=== PATIENT | female | born 1990 | race Caucasian/White ===

== ENCOUNTER 2017-06-22 19:00 | Emergency (ER) | payer SELFPAY ==
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
[2017-06-22 21:03] VITALS: BP 107/58
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
== END 2017-06-22 21:00 | disposition home or self-care (01) ==
LOC: ED 19:00
DX: M79.1 Myalgia (principal); Y32.XXXA Crashing of motor vehicle, undetermined intent, initial encounter; Y93.9 Activity, unspecified; Y99.9 Unspecified external cause status
CPT/HCPCS: 71020; 72125; 73030; 73552; 99283; S1016

== ENCOUNTER 2017-06-28 10:19 | Emergency (ER) | payer SELFPAY ==
--- NOTE | 2017-06-28 10:30 | ED Physician Documentation ---
Nausea/Vomiting/Diarrhea - HISTORIAN Historian: patient - HPI Chief Complaint: Nausea,Vomiting,Diarrhea Onset: hours (36 hours ago) Duration: none Timing: sudden onset Context: denies: out of country travel, bad food Severity: moderate - Associated Symptoms Vomiting: frequent (5-6 times yesterday, 3 times this AM) Diarrhea: mild (3 times no blood) Abdominal Pain: cramping - ROS CONST: chills. denies: recent illness, fever - PAST HX Past History: none Other History: denies: gall stones, colon problems Surgeries/Procedures: other (c section) Immunizations: referred to PCP Allergies/Adverse Reactions: Allergies Allergy/AdvReac Type Severity Reaction Status Date / Time Penicillins Allergy Verified 06/28/17 10:32 Home Medications: Ambulatory Orders Medication Instructions Recorded Ondansetron HCl Rapdis [Zofran Odt] 4 mg PO Q8 #10 tab 06/28/17 - SOCIAL HX Smoking History: non-smoker Alcohol Use: none Drug Use: none - FAMILY HX Family History: none - VITAL SIGNS Vital Signs: Vital Signs Temp Pulse Resp BP Pulse Ox 98.5 F 96 H 18 116/68 98 06/28/17 10:27 06/28/17 12:05 06/28/17 12:05 06/28/17 12:05 06/28/17 12:05 - REVIEWED ASSESSMENTS Nursing Assessment Reviewed: Yes Vitals Reviewed: Yes ED Results Lab/Radiology - Lab Results Lab Results: Lab Results 06/28/17 06/28/17 11:10 11:10 WBC 9.20 K/ul K/ul (4.00-12.00) RBC 4.88 M/ul M/ul (3.90-5.20) Hgb 12.6 g/dL g/dL (12.0-16.0) Hct 38.9 % % (34.5-46.5) MCV 79.7 fl L fl (80.0-100.0) MCH 25.9 pg L pg (28.0-34.0) MCHC 32.5 g/dL g/dL (30.0-36.0) RDW 13.9 % % (11.3-14.3) Plt Count 271 K/mm3 K/mm3 (130-400) Neut % (Auto) 89.8 % H % (39.0-79.0) Lymph % (Auto) 5.1 % L % (16.0-50.0) [place] % (Auto) 2.9 % % (0.0-11.0) Eos % (Auto) 1.4 % % (0.0-6.8) Baso % (Auto) 0.1 (0.0-1.5) Neut # (Auto) 8.3 # k/uL H # k/uL (1.4-7.7) Lymph # (Auto) 0.5 # k/uL L # k/uL (0.6-4.0) [place] # (Auto) 0.3 # k/uL # k/uL (0.0-0.9) Eos # (Auto) 0.1 # k/uL # k/uL (0.0-0.6) Baso # (Auto) 0.0 # k/uL # k/uL (0.0-0.5) Reactive Lymphs % 0.7 % % (0.0-5.0) Reactive Lymphs # 0.1 # k/uL # k/uL (0.0-0.8) Sodium 135 mmol/L L mmol/L (137-145) Potassium 3.6 mmol/L mmol/L (3.5-5.1) Chloride 102 mmol/L mmol/L (98-107) Carbon Dioxide 24 mmol/L mmol/L (22-30) BUN 12 mg/dL mg/dL (7-17) Creatinine 0.50 mg/dL L mg/dL (0.52-1.04) Estimated Creat Clear 309 Est GFR ( Amer) > 60 (60 - ) Est GFR (Non-Af Amer) > 60 (60 - ) Glucose 105 mg/dL mg/dL (74-106) Calcium 8.6 mg/dL mg/dL (8.4-10.2) Total Bilirubin 0.5 mg/dL mg/dL (0.2-1.3) AST 16 U/L U/L (15-46) ALT 30 U/L U/L (13-69) Alkaline Phosphatase 93 U/L U/L (38-126) Total Protein 8.0 g/dL g/dL (6.3-8.2) Albumin 4.2 g/dL g/dL (3.5-5.0) - Radiology Radiology Impressions: Examination: Obstruction series History: Abdominal discomfort Findings: 4 views obtained of the chest and abdomen. Single view of the chest without focal infiltrative process. No abnormal dilation of the large or small bowel. Air and stool throughout the large bowel. No suspicious calcification projecting over the renal fossa or the lower pelvic region. Osseous structures are appropriate for age. Impression: No acute pulmonary process. No obstruction. No suspicious calcifications by plain film sensitivity. - Orders Orders: ED Orders Category Date Time Status Place IV Lock 1T Care 06/28/17 10:40 Active ABD SERIES [ABD SERIES PA CHEST] [RAD] Stat Exams 06/28/17 Ordered CBC/PLATELET/DIFF Routine Lab 06/28/17 11:10 Completed CMP Routine Lab 06/28/17 11:10 Completed URINALYSIS Routine Lab 06/28/17 12:00 Ordered URINE HCG Routine Lab 06/28/17 12:00 Ordered 0.9 % Sodium Chloride [Normal Saline] 1,000 ml Med 06/28/17 11:00 Discontinued IV .Q1H 0.9 % Sodium Chloride [Normal Saline] 1,000 ml Med 06/28/17 10:43 Discontinued IV .STK-MED Nausea Physical Exam - EXAM General Appearance: alert, mild distress EENT: eye inspection normal, ENT inspection normal, pharynx normal, no signs of dehydration. No: pharyngeal erythema Neck: normal inspection, thyroid normal, supple. No: lymphadenopathy Respiratory: no resp distress, chest non-tender, breath sounds normal. No: wheezes, rales, rhonchi CVS: reg rate & rhythm, heart sounds normal, equal pulses, no murmur, no gallop Abdomen: no organomegaly, tenderness (mild diffuse), other (obese). No: guarding, rebound Skin: warm/dry, normal color Extremities: non-tender Neuro/Psych: oriented X3, cognition normal Discharge Clincal Impression: Viral gastroenteritis Prescriptions: Ondansetron HCl Rapdis [Zofran Odt] 4 mg PO Q8 #10 tab Referrals: Primary Doctor,No [Primary Care Provider] - 2 Days Additional Instructions: Take Zofran as needed for nausea. Start clear liquids for about 24 hours. Watch for fever or chills. If symptoms are not improving by the next several days to see your primary care provider or return to the ED. Condition: Stable Disposition: 01 HOME, SELF-CARE Decision to Admit: NO Date of Decison to Admit: 06/28/17 Decision Time: 11:46
[2017-06-28] MEDS ORDERED: 0.9 % SODIUM CHLORIDE 1,000 ML IV ONE (10:43)
[2017-06-28] MEDS: 0.9 % SODIUM CHLORIDE 1,000 ML IV SCH (11:15)
[2017-06-28 11:23] LABS: BASOPHILS % 0.1 (0.0-1.5); EOSINOPHILS % 1.4 % (0.0-6.8); MEAN CORPUSCULAR HEMOGLOBIN 25.9 pg (28.0-34.0); MEAN CORPUSCULAR VOLUME 79.7 fl (80.0-100.0); MONOCYTES % 2.9 % (0.0-11.0); NEUTROPHILS # 8.3 # k/uL (1.4-7.7)
[2017-06-28 11:32] LABS: eGFR (African) > 60; eGFR (Non-African) > 60
[2017-06-28 12:13] VITALS: BP 116/68
[2017-06-28 13:40] LABS: APPEARANCE,URINE CLEAR (CLEAR); COLOR,URINE YELLOW (YELLOW); OCCULT BLOOD,URINE NEGATIVE (NEGATIVE); URINE HCG NEGATIVE (NEGATIVE); UROBILINOGEN URINE 0.2 Eu (0.2-1.0)
--- NOTE | 2017-06-28 18:22 | Diagnostic Imaging Report ---
[facility] [address] [facility].[address] [address] Report Submission Date: Jun 28, 2017 11:15:30 AM CDT Patient Study Name: SIN HOROWITZ Date: Jun 28, 2017 10:51:03 AM CDT Modality Type: CR Gender: F Description: CHEST,ABDOMEN : 86 Institution: [facility] Physician: PATSY SMITH - [place] Examination: Obstruction series History: Abdominal discomfort Findings: 4 views obtained of the chest and abdomen. Single view of the chest without focal infiltrative process. No abnormal dilation of the large or small bowel. Air and stool throughout the large bowel. No suspicious calcification projecting over the renal fossa or the lower pelvic region. Osseous structures are appropriate for age. Impression: No acute pulmonary process. No obstruction. No suspicious calcifications by plain film sensitivity. Electronically signed on Jun 28, 2017 11:15:30 AM CDT by: Maximilian SALAS
== END 2017-06-28 12:05 | disposition home or self-care (01) ==
LOC: ED 10:19
DX: A08.4 Viral intestinal infection, unspecified (principal)
CPT/HCPCS: 74022; 80053; 81002; 81025; 85025; J7030; 96360; 99283; S1016